=== PATIENT | male | born 1975 | race Caucasian/White ===

== ENCOUNTER 2020-04-02 05:31 | Emergency (ER) | payer OTHER ==
[~2020-04-02] VITALS: Ht 185.4 cm; Wt 88.5 kg
[2020-04-02 05:36] VITALS: Ht 185.4 cm; Wt 88.5 kg
[2020-04-02 08:07] VITALS: BP 117/76
== END 2020-04-02 08:07 | disposition other institution (70) ==
LOC: ED 05:31
DX: S81.831A Puncture wound without foreign body, right lower leg, initial encounter (principal); L03.115 Cellulitis of right lower limb; X58.XXXA Exposure to other specified factors, initial encounter; Y93.89 Activity, other specified; Y92.096 Garden or yard of other non-institutional residence as the place of occurrence of the external cause; Y99.8 Other external cause status
CPT/HCPCS: 90715; J1885; J3490

== ENCOUNTER 2020-04-02 05:31 | Emergency (ER) | payer OTHER | END 2020-04-02 08:07 | disposition other institution (70) | LOC: ED 05:31 | DX: Z02.89 Encounter for other administrative examinations (principal) ==